=== PATIENT | male | born 1970 | race Caucasian/White ===

== ENCOUNTER 2018-06-08 15:57 | Emergency (ER) | payer OTHER, BC ==
[~2018-06-08] VITALS: Ht 172.7 cm; Wt 79.4 kg
[~2018-06-08 15:57] MED LIST: LRT10T PO
[2018-06-08] MEDS: ONDANSETRON 8 MG (ZOFRAN) ORAL DISSOLVE TAB ONE (16:09)
[2018-06-08] MEDS: LIDOCAINE 1% INJ 20 ML 20 ML VIAL ONE (16:10)
[2018-06-08 16:21] LABS: BASOPHILS % (AUTO) 1 % (0-10); EOSINOPHILS # (AUTO) 0.1 10^3/uL (0.0-0.3); EOSINOPHILS % (AUTO) 1 % (0-10); HEMATOCRIT 43 % (40-54); HEMOGLOBIN 15.3 G/DL (13.3-17.7); LYMPHOCYTES # (AUTO) 2.5 X 10^3 (1.0-4.0); LYMPHOCYTES % (AUTO) 31 % (12-44); MEAN CORPUSCULAR HEMOGLOBIN 30 PG (25-34); MEAN CORPUSCULAR HGB CONC 35 G/DL (32-36); MEAN CORPUSCULAR VOLUME 86 FL (80-99); MONOCYTES # (AUTO) 0.7 X 10^3 (0.0-1.0); MONOCYTES % (AUTO) 9 % (0-12); NEUTROPHILS # (AUTO) 4.8 X 10^3 (1.8-7.8); NEUTROPHILS % (AUTO) 59 % (42-75); PLATELET COUNT 338 10^3/uL (130-400); RED BLOOD COUNT 5.06 10^6/uL (4.35-5.85); WHITE BLOOD COUNT 8.2 10^3/uL (4.3-11.0)
[2018-06-08 16:41] LABS: ALANINE AMINOTRANSFERASE 22 U/L (0-55); ALBUMIN 4.5 GM/DL (3.2-4.5); ALKALINE PHOSPHATASE 77 U/L (40-136); BILIRUBIN,TOTAL 0.4 MG/DL (0.1-1.0); BUN/CREATININE RATIO 17; CALCIUM 10.2 MG/DL (8.5-10.1); CARBON DIOXIDE 23 MMOL/L (21-32); CHLORIDE 108 MMOL/L (98-107); CREATININE SERUM 0.99 MG/DL (0.60-1.30); GFR ESTIMATED > 60; GLUCOSE 98 MG/DL (70-105); POTASSIUM 3.5 MMOL/L (3.6-5.0); SODIUM 142 MMOL/L (135-145); TOTAL PROTEIN 7.5 GM/DL (6.4-8.2)
--- NOTE | 2018-06-08 16:53 | Diagnostic Imaging Report ---
INDICATION: Left hand injury, pain. COMPARISON: None. FINDINGS: Three views of the left hand demonstrate comminuted slightly displaced fracture of the distal phalanx third digit. There is a nondisplaced comminuted fracture of the mid phalanx of the third digit. 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 Radiopaque foreign bodies are seen probably within the nail bed of the fifth digit. IMPRESSION: Acute fractures of the middle and distal phalanges of the third digit. Dictated by: Dictated on workstation # [id number]
[2018-06-08] MEDS ORDERED: morphine INJ 10 MG/ML 1ML (SYR OR VIAL) IVP ONE (17:00)
[2018-06-08] MEDS: CLINDAMYCIN 900 MG/50 ML IVPB 50 ML IV ONE (17:03)
[2018-06-08] MEDS: fentaNYL INJECTION 100 MCG/2 ML AMP IVP ONE (17:04)
--- NOTE | 2018-06-08 18:01 | ED Upper Extremity ---
General Chief Complaint: Laceration Stated Complaint: LACERATION ON L HAND Nursing Triage Note: PT WAS WORKING ON JOB SITE ET CRUSHED HIS RIGHT MIDDLE FINGER IN MACHINERY. PT FINGER IS MANGLED. PAIN 9/10. PT IS PALE, NAUSEATED, ET CLAMMY. Nursing Sepsis Screen: No Definite Risk Source: patient Exam Limitations: no limitations History of Present Illness Date Seen by Provider: Jun 08, 2018 Time Seen by Provider: 16:05 Initial Comments This 48-year-old gentleman presents to emergency room with a crush injury to the left middle finger. He was cleaning a metal drum and lost control of a table that was nearby. The cable had a metal bracket or clamp on it. His finger was crushed between the metal drum and the clamp on the cable. He has extensive bone and soft tissue injury to the distal portion of the left middle finger. He denies any other injuries. He is up-to-date on his tetanus immunization. Wounds have no significant bleeding at the time of presentation. Patient was on a work site. Onset: just prior to arrival Allergies and Home Medications Allergies Coded Allergies: codeine (Verified Allergy, Unknown, 06/08/18) Home Medications Loratadine 10 Mg Tab, 10 MG PO DAILY, (Reported) Ondansetron 4 Mg Tab.rapdis, 4 MG SL Q4H PRN for NAUSEA/VOMITING Prescribed by: LINDY REEVES on 06/08/181802 Oxycodone HCl/Acetaminophen 1 Each Tablet, 1-2 EACH PO Q6H PRN for PAIN-MODERATE Prescribed by: LINDY REEVES on 06/08/181802 Sulfamethoxazole/Trimethoprim 1 Each Tablet, 1 EACH PO Q12H Prescribed by: LINDY REEVES on 06/08/181802 Patient Home Medication List Home Medication List Reviewed: Yes Review of Systems Constitutional: no symptoms reported EENTM: no symptoms reported Respiratory: no symptoms reported Cardiovascular: no symptoms reported Gastrointestinal: no symptoms reported Genitourinary: no symptoms reported Musculoskeletal: see HPI Skin: see HPI Psychiatric/Neurological: No Symptoms Reported Past Gogcjvk-Wwefva-Ebcgtq Hx Patient Social History Alcohol Use: Occasionally Uses Recreational Drug Use: No Recent Foreign Travel: No Contact w/Someone Who Travel: No Recent Infectious Disease Expo: No Immunizations Up To Date Tetanus Booster (TDap): Less than 5yrs Date of Influenza Vaccine: Apr 19, 2011 Past Medical History Surgeries: Yes 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 oz. [id number]; BMI Method:Estimated General Appearance: WD/WN, mild distress HEENT: PERRL/EOMI, normal ENT inspection Neck: normal inspection Cardiovascular: regular rate, rhythm, no edema, no murmur Respiratory: lungs clear, normal breath sounds, no respiratory distress Elbow/Forearm: normal inspection, non-tender, no evidence of injury, normal ROM , Left Wrist: Yes normal inspection, Yes non-tender, Yes no evidence of injury, Yes normal ROM Hand: swelling (crush injury to the distal half of the left middle finger. Proximal portion of the nail is avulsed from the nail bed. There is a near amputation of the finger tip at the mid distal phalanx. The distal phalanx is shattered. There is a comminuted fracture of the distal portion of the middle phalanx. 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 Finger initially was treated with digital block with about 5 mL lidocaine. An additional 4 mL of lidocaine was injected right before suturing. The surface of the wound was also sprayed with lidocaine. Wound and surrounding hand were then scrubbed with sterile saline and chlorhexidine. Wound was irrigated with approximately 1000 mL normal saline. Betadine prep was applied. Wound was loosely approximated with 4-0 Prolene. It was then dressed with Xeroform gauze and sterile cotton gauze on top of the Xeroform. Soft roll was then applied to the hand and forearm. An Ortho-Glass splint was fashioned from the midforearm to past the fingertips. Progress/Results/Core Measures Results/Orders Lab Results Laboratory Tests Test 06/08/18 16:15 Range/Units White Blood Count 8.2 4.3-11.0 10^3/uL Red Blood Count 5.06 4.35-5.85 10^6/uL Hemoglobin 15.3 13.3-17.7 G/DL Hematocrit 43 40-54 % Mean Corpuscular Volume 86 80-99 FL Mean Corpuscular Hemoglobin 30 25-34 PG Mean Corpuscular Hemoglobin Concent 35 32-36 G/DL Red Cell Distribution Width 13.0 10.0-14.5 % Platelet Count 338 130-400 10^3/uL Mean Platelet Volume 10.0 7.4-10.4 FL Neutrophils (%) (Auto) 59 42-75 % Lymphocytes (%) (Auto) 31 12-44 % Monocytes (%) (Auto) 9 0-12 % Eosinophils (%) (Auto) 1 0-10 % Basophils (%) (Auto) 1 0-10 % Neutrophils # (Auto) 4.8 1.8-7.8 X 10^3 Lymphocytes # (Auto) 2.5 1.0-4.0 X 10^3 Monocytes # (Auto) 0.7 0.0-1.0 X 10^3 Eosinophils # (Auto) 0.1 0.0-0.3 10^3/uL Basophils # (Auto) 0.0 0.0-0.1 10^3/uL Sodium Level 142 135-145 MMOL/L Potassium Level 3.5 L 3.6-5.0 MMOL/L Chloride Level 108 H 98-107 MMOL/L Carbon Dioxide Level 23 21-32 MMOL/L Anion Gap 11 5-14 MMOL/L Blood Urea Nitrogen 17 7-18 MG/DL Creatinine 0.99 0.60-1.30 MG/DL Estimat Glomerular Filtration Rate > 60 BUN/Creatinine Ratio 17 Glucose Level 98 70-105 MG/DL Calcium Level 10.2 H 8.5-10.1 MG/DL Corrected Calcium 9.8 8.5-10.1 MG/DL Total Bilirubin 0.4 0.1-1.0 MG/DL Aspartate Amino Transf (AST/SGOT) 25 5-34 U/L Alanine Aminotransferase (ALT/SGPT) 22 0-55 U/L Alkaline Phosphatase 77 40-136 U/L Total Protein 7.5 6.4-8.2 GM/DL Albumin 4.5 3.2-4.5 GM/DL My Orders Orders - LINDY BLACKBURN MD Lidocaine 1% Inj 20 Ml (Xylocaine 1% Inj (06/08/18 16:02) Ondansetron Oral Dissolve Tab (Zofran O (06/08/18 16:08) Cbc With Automated Diff (06/08/18 16:15) Comprehensive Metabolic Panel (06/08/18 16:15) Saline Lock/Iv-Start (06/08/18 16:15) Fentanyl Injection (Sublimaze Injection (06/08/18 16:15) Clindamycin 900 Mg/50 Ml Ivpb (Cleocin P (06/08/18 16:15) Hand, Left, 3 Views (06/08/18 16:15) Morphine Injection (Morphine Injection (06/08/18 17:00) Medications Given in ED Current Medications Medications Dose Ordered Sig/Lanie Route Start Time Stop Time Status Last Admin Dose Admin Clindamycin Phosphate/Dextrose 50 ml @ 100 mls/hr ONCE ONCE IV 06/08/18 16:15 06/08/18 16:44 DC 06/08/18 17:03 100 MLS/HR Fentanyl Citrate 100 mcg ONCE ONCE IVP 06/08/18 16:15 06/08/18 16:17 DC 06/08/18 17:04 100 MCG Lidocaine HCl 20 ml STK-MED ONCE .ROUTE 06/08/18 16:02 06/08/18 16:04 DC 06/08/18 16:10 20 ML Ondansetron Base 8 mg STK-MED ONCE .ROUTE 06/08/18 16:08 06/08/18 16:11 DC 06/08/18 16:09 8 MG Vital Signs/I&O 11/20/18 16:00 Temp 98.9 Pulse 74 Resp 18 B/P (MAP) 136/108 (117) O2 Delivery Room Air Blood Pressure Mean: 117 Progress Progress Note : Progress Note A digital block using 5 mL lidocaine was immediately performed after cleaning skin with alcohol. Hand was soaked in sterile saline with chlorhexidine. Patient was nauseous during digital block and 8 mg of Zofran was given sublingually. IV was established. X-rays were obtained. Case was discussed with Dr. Jacobs. He viewed radiographs prior to discussion. His recommendation is to treat with antibiotics and pain medication, irrigate the wound thoroughly, loosely close, dressed with nonstick sterile dressing, and splint the entire hand. Patient was treated according to his guidance. Patient is to see Dr. Jacobs in the clinic at 08:00 tomorrow morning NPO and ready for surgery. Patient received clindamycin 900 mg by IV route and fentanyl 100 g by IV route. Diagnostic Imaging Diagonstic Imaging: Xray Plain Films/CT/US/NM/MRI: hand Comments Hand x-ray viewed by me and report reviewed. See report below: NAME: LAKEISHA IRIZARRY [facility] REC#: [id number] PT STATUS: REG ER : 1970 PHYSICIAN: LINDY BLACKBURN MD ADMIT DATE: 06/08/18/ER Signed Date of Exam: 06/08/18 HAND, LEFT, 3 VIEWS INDICATION: Left hand injury, pain. COMPARISON: None. FINDINGS: Three views of the left hand demonstrate comminuted slightly displaced fracture of the distal phalanx third digit. There is a nondisplaced comminuted fracture of the mid phalanx of the third digit. 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 Radiopaque foreign bodies are seen probably within the nail bed of the fifth digit. IMPRESSION: Acute fractures of the middle and distal phalanges of the third digit. Dictated by: Dictated on workstation # [id number] Dict: 06/08/189 Trans: 06/08/181742 Interpreted by: ROSE MCCLURE Electronically signed by: ROSE MCCLURE 06/08/181742 Departure Impression Primary Impression: Crush injury to finger Qualified Codes: S67.10XA - Crushing injury of unspecified finger(s), initial encounter Additional Impression: Open fracture of finger of left hand Qualified Codes: S62.663B - Nondisplaced fracture of distal phalanx of left middle finger, initial encounter for open fracture Disposition: 01 HOME, SELF-CARE Condition: Improved Departure-Patient Inst. Decision time for Depature: 16:55 Referrals: AUDREY JACOBS JACQUELINE S DO (PCP/Family) Primary Care Physician Patient Instructions: Finger Fracture (DC) Add. Discharge Instructions: Keep the splint clean and dry. Keep the wound dressed. See Dr. Jacobs in his office tomorrow at 08:00. Do not eat or drink after midnight and be prepared for surgery. Return to the emergency room if you have any further problems or concerns. Use your pain medication as prescribed. Complete your antibiotics as prescribed unless otherwise instructed by Dr. Jacobs All discharge instructions reviewed with patient and/or family. Voiced understanding. Scripts Sulfamethoxazole/Trimethoprim (Bactrim Ds Tablet) 1 Each Tablet 1 EACH PO Q12H, #20 TAB Prov: LINDY BLACKBURN MD 06/08/18 Ondansetron (Ondansetron Odt) 4 Mg Tab.rapdis 4 MG SL Q4H PRN for NAUSEA/VOMITING, #10 TAB Prov: LINDY BLACKBURN MD 06/08/18 Oxycodone HCl/Acetaminophen (Percocet 5-325 mg Tablet) 1 Each Tablet 1-2 EACH PO Q6H PRN for PAIN-MODERATE MDD 6, #20 TAB Prov: LINDY BLACKBURN MD 06/08/18 Copy Copies To 1: AUDREY JACOBS JOSHUA T MD Jun 08, 2018 18:01
[2018-06-08] MEDS ORDERED: OXYC1TAB87 PO (18:03)
[2018-06-08] MEDS ORDERED: SULF1TAB35 PO (18:03)
[2018-06-08] MEDS ORDERED: ONDA4TAB11 SL (18:03)
[2018-06-08 18:27] VITALS: BP 184/98
== END 2018-06-08 18:30 | disposition home or self-care (01) ==
LOC: EDUNIT# 15:57 → ER 15:58
DX: S62.633B Displaced fracture of distal phalanx of left middle finger, initial encounter for open fracture (principal); I10 Essential (primary) hypertension; Z88.5 Allergy status to narcotic agent; W23.1XXA Caught, crushed, jammed, or pinched between stationary objects, initial encounter; Y92.59 Other trade areas as the place of occurrence of the external cause; Y99.0 Civilian activity done for income or pay
CPT/HCPCS: 12042; 29125; 36415; 64450; 73130; 80053; 85025